=== PATIENT | female | born 1950 | race Caucasian/White ===

== ENCOUNTER 2022-12-27 15:48 | Inpatient (IN) | payer OTHER ==
[~2022-12-27] VITALS: Ht 144.8 cm; Wt 64.4 kg
[2022-12-27 15:57] VITALS: BP_SYST 114; PULSE 133; RESP 24; TEMP 98.3; O2SAT 97
[2022-12-27] MEDS ORDERED: NACL 0.9% 1,000 ML IV ONE ×2 (16:15→18:45)
[2022-12-27 17:10] LABS: HEMATOCRIT 38.5 % (36-48); HEMOGLOBIN 12.4 g/dL (12.0-16.0); MEAN CORPUSCULAR HEMOGLOBIN 31 pg (27-31); MEAN CORPUSCULAR HGB CONC 32 % (32-36); MEAN CORPUSCULAR VOLUME 95 fL (79.0-98.0); PLATELET COUNT (AUTO) 109 K/uL (130-430); RED BLOOD CELL COUNT(AUTO) 4.06 MIL/uL (4.2-6.2); RED CELL DISTRIBUTION WIDTH 14.5 % (9.0-15.0); WHITE BLOOD COUNT (AUTO) 2.9 K/uL (4.8-10.8)
[2022-12-27 17:13] LABS: ANION GAP 15 (5-15); CALCIUM 9.3 mg/dL (8.4-11.0); CARBON DIOXIDE 22 mmol/L (23-29); CHLORIDE 110 mmol/L (98-107); CREATININE 1.74 mg/dL (0.55-1.30); GLUCOSE 143 mg/dL (74-106); POTASSIUM 4.3 mmol/L (3.5-5.1); SODIUM SERUM 147 mmol/L (136-145); UREA NITROGEN, BLOOD 72 mg/dL (8-21)
[2022-12-27 17:18] LABS: ALANINE AMINOTRANSFERASE 17 U/L (12-78); ASPARTATE AMINOTRANSFERASE 27 U/L (10-37); LIPASE 2553 U/L (73-393); TOTAL BILIRUBIN 0.7 mg/dL (0.0-1.0); TOTAL PROTEIN, SERUM 6.1 g/dL (6.4-8.3)
[2022-12-27] MEDS ORDERED: MORPHINE 4 MG INJ. 4 MG/ML VIAL IVP ONE ×2 (18:15→20:15)
[2022-12-27 18:35] LABS: BAND % (MANUAL) 22 % (0-6); BASOPHILS % (MANUAL) 0 % (0-2); EOSINOPHILS % (MANUAL) 0 % (0-7); LYMPHOCYTES % (MANUAL) 1 % (20-46); MONOCYTES % (MANUAL) 7 % (0-11); OVALOCYTES FEW; PLATELET ESTIMATE DECREASED (ADEQUATE); POLYCHROMASIA 1+
[2022-12-27 19:39] LABS: CORRECTED WHITE BLOOD COUNT 2.7 K/uL (4.5-11.0)
[2022-12-28] VITALS (7 sets, daily range): BP systolic 127–156; PULSE 85–122; RESP 16–18; TEMP 96.6–98.6; O2SAT 95–98
[2022-12-28] MEDS: D5/0.45 NS 1,000 ML IV SCH ×3 (02:30→22:14)
[2022-12-28] MEDS ORDERED: SIMV-343 PO (02:52)
[2022-12-28] MEDS ORDERED: METF-379 PO (02:52)
[2022-12-28] MEDS ORDERED: ALLO100T PO (02:52)
[2022-12-28] MEDS ORDERED: ALEN10TA25 PO (02:52)
[2022-12-28] MEDS ORDERED: AMLO5TAB4 PO (02:52)
[2022-12-28] MEDS ORDERED: LIDOCAINE VISCOUS 2%, 15 ML UDC MM ONE (11:00)
[2022-12-28] MEDS ORDERED: BENZOCAINE 20% 0.5mL UD SPRAY MM ONE (12:15)
[2022-12-28] MEDS ORDERED: LIDOCAINE VISCOUS 2%, 15 ML UDC MM SCH (15:00)
[2022-12-28] MEDS: BENZOCAINE 20% 0.5mL UD SPRAY MM SCH ×2 (17:51→22:02)
[2022-12-28] MEDS ORDERED: MORPHINE 4 MG INJ. 4 MG/ML VIAL IVP PRN (19:30)
[2022-12-28] MEDS ORDERED: ONDANSETRON HCL 4 MG/2 ML VIAL IVP PRN (19:30)
[2022-12-28] MEDS ORDERED: MORPHINE 2 MG/ML INJ. SYRINGE IVP PRN (19:30)
[2022-12-28] MEDS ORDERED: NALOXONE HCL 0.4 MG/ML AMP (NARCAN) IVP PRN ×3 (19:30)
[2022-12-28] MEDS ORDERED: LORazepam 2 MG/ML VIAL IVP PRN (19:30)
[2022-12-28] MEDS ORDERED: ACETAMINOPHEN 325 MG TABLET PO PRN ×2 (19:30→20:00)
[2022-12-28] MEDS ORDERED: HYDROcodone/ACETAMIN 10-325 MG TAB PO PRN (19:30)
[2022-12-28] MEDS ORDERED: ALEN70TA84 PO (20:16)
[2022-12-28] MEDS: SIMVASTATIN 20 MG TABLET PO SCH (22:02)
[2022-12-28] MEDS: INSULIN REGULAR, HUMAN 100 UNITS/ML, 3 ML VIAL (humuLIN R) SUBCUT PRN (22:11)
[2022-12-29] VITALS (7 sets, daily range): BP systolic 122–139; PULSE 111–125; RESP 15–20; TEMP 96–99.4; O2SAT 96–98
[2022-12-29 05:12] LABS: BASOPHILS % (AUTO) 0.1 % (0.0-2.0); HEMATOCRIT 33.9 % (36-48); HEMOGLOBIN 10.9 g/dL (12.0-16.0); LYMPHOCYTES # (AUTO) 0.1 K/uL (1.0-5.5); LYMPHOCYTES % (AUTO) 2.9 % (20.5-51.5); MEAN CORPUSCULAR HEMOGLOBIN 31 pg (27-31); MEAN CORPUSCULAR HGB CONC 32 % (32-36); MEAN CORPUSCULAR VOLUME 95 fL (79.0-98.0); NEUTROPHILS # (AUTO) 2.4 K/uL (1.8-7.7); PLATELET COUNT (AUTO) 85 K/uL (130-430); RED BLOOD CELL COUNT(AUTO) 3.55 MIL/uL (4.2-6.2); RED CELL DISTRIBUTION WIDTH 14.5 % (9.0-15.0); WHITE BLOOD COUNT (AUTO) 2.5 K/uL (4.8-10.8)
[2022-12-29] MEDS: INSULIN REGULAR, HUMAN 100 UNITS/ML, 3 ML VIAL (humuLIN R) SUBCUT PRN ×2 (06:13→16:32)
[2022-12-29 06:36] LABS: ALANINE AMINOTRANSFERASE 17 U/L (12-78); ALBUMIN 1.6 g/dL (3.4-4.8); ANION GAP 10 (5-15); ASPARTATE AMINOTRANSFERASE 33 U/L (10-37); CALCIUM 8.5 mg/dL (8.4-11.0); CARBON DIOXIDE 22 mmol/L (23-29); CHLORIDE 114 mmol/L (98-107); CREATININE 0.77 mg/dL (0.55-1.30); GLUCOSE 176 mg/dL (74-106); PHOSPHORUS 2.2 mg/dL (2.7-4.5); POTASSIUM 3.3 mmol/L (3.5-5.1); SODIUM SERUM 146 mmol/L (136-145); TOTAL BILIRUBIN 0.6 mg/dL (0.0-1.0); TOTAL PROTEIN, SERUM 5.2 g/dL (6.4-8.3); UREA NITROGEN, BLOOD 33 mg/dL (8-21)
[2022-12-29] MEDS: D5/0.45 NS 1,000 ML IV SCH ×2 (08:34→16:27)
[2022-12-29] MEDS: amLODIPine BESYLATE 5 MG TABLET PO SCH (08:35)
[2022-12-29] MEDS: BENZOCAINE 20% 0.5mL UD SPRAY MM SCH ×3 (08:35→20:58)
[2022-12-29] MEDS: ALLOPURINOL 100 MG TABLET (ZYLOPRIM) PO SCH (08:35)
[2022-12-29] MEDS ORDERED: K PHOS 30 MM in NS 250 ML IV ONE (11:00)
[2022-12-29] MEDS: SIMVASTATIN 20 MG TABLET PO SCH (20:46)
[2022-12-30 00:32] VITALS: BP_SYST 116; PULSE 122; RESP 18; TEMP 96.9; O2SAT 97
[2022-12-30 04:58] LABS: BASOPHILS % (AUTO) 0.2 % (0.0-2.0); EOSINOPHILS % (AUTO) 0.3 % (0.0-4.0); HEMATOCRIT 29.5 % (36-48); HEMOGLOBIN 9.5 g/dL (12.0-16.0); LYMPHOCYTES # (AUTO) 0.1 K/uL (1.0-5.5); LYMPHOCYTES % (AUTO) 3.6 % (20.5-51.5); MEAN CORPUSCULAR HEMOGLOBIN 31 pg (27-31); MEAN CORPUSCULAR HGB CONC 32 % (32-36); MEAN CORPUSCULAR VOLUME 95 fL (79.0-98.0); MONOCYTES # (AUTO) 0.1 K/uL (0.0-1.0); MONOCYTES % (AUTO) 2.7 % (1.7-9.3); NEUTROPHILS # (AUTO) 2.5 K/uL (1.8-7.7); NEUTROPHILS % (AUTO) 93.2 % (40.0-70.0); PLATELET COUNT (AUTO) 69 K/uL (130-430); RED BLOOD CELL COUNT(AUTO) 3.11 MIL/uL (4.2-6.2); RED CELL DISTRIBUTION WIDTH 14.7 % (9.0-15.0); WHITE BLOOD COUNT (AUTO) 2.7 K/uL (4.8-10.8)
[2022-12-30 05:27] LABS: TOTAL IRON BIND. CAPACITY 142 ug/dL (250-450)
[2022-12-30] MEDS: D5/0.45 NS 1,000 ML IV SCH ×2 (05:40→14:23)
[2022-12-30] MEDS: INSULIN REGULAR, HUMAN 100 UNITS/ML, 3 ML VIAL (humuLIN R) SUBCUT PRN ×4 (06:16→20:52)
[2022-12-30 08:20] VITALS: O2SAT 98
[2022-12-30 08:25] VITALS: BP_SYST 120; PULSE 110; RESP 20; TEMP 97.5; O2SAT 98
[2022-12-30] MEDS: ALLOPURINOL 100 MG TABLET (ZYLOPRIM) PO SCH (09:46)
[2022-12-30] MEDS: amLODIPine BESYLATE 5 MG TABLET PO SCH (09:46)
[2022-12-30] MEDS: BENZOCAINE 20% 0.5mL UD SPRAY MM SCH ×3 (09:47→20:54)
[2022-12-30 11:30] VITALS: BP_SYST 117; PULSE 114; RESP 19; TEMP 97.9; O2SAT 97
[2022-12-30 16:48] VITALS: BP_SYST 117; PULSE 111; RESP 19; TEMP 98.5; O2SAT 96
[2022-12-30 20:00] VITALS: BP_SYST 119; PULSE 114; RESP 18; TEMP 96.9; O2SAT 95
[2022-12-30] MEDS: SIMVASTATIN 20 MG TABLET PO SCH (20:54)
[2022-12-31] VITALS (7 sets, daily range): BP systolic 109–117; PULSE 112–117; RESP 16–20; TEMP 97.3–98.8; O2SAT 95–97
[2022-12-31] MEDS: D5/0.45 NS 1,000 ML IV SCH ×3 (00:54→20:56)
[2022-12-31 05:30] LABS: BASOPHILS % (AUTO) 0.1 % (0.0-2.0); EOSINOPHILS % (AUTO) 0.6 % (0.0-4.0); HEMATOCRIT 27.5 % (36-48); LYMPHOCYTES # (AUTO) 0.1 K/uL (1.0-5.5); LYMPHOCYTES % (AUTO) 4.6 % (20.5-51.5); MEAN CORPUSCULAR HEMOGLOBIN 31 pg (27-31); MEAN CORPUSCULAR HGB CONC 33 % (32-36); MEAN CORPUSCULAR VOLUME 94 fL (79.0-98.0); MONOCYTES # (AUTO) 0.1 K/uL (0.0-1.0); MONOCYTES % (AUTO) 2.7 % (1.7-9.3); NEUTROPHILS # (AUTO) 2.3 K/uL (1.8-7.7); PLATELET COUNT (AUTO) 63 K/uL (130-430); RED BLOOD CELL COUNT(AUTO) 2.93 MIL/uL (4.2-6.2); RED CELL DISTRIBUTION WIDTH 14.3 % (9.0-15.0); WHITE BLOOD COUNT (AUTO) 2.5 K/uL (4.8-10.8)
[2022-12-31 05:44] LABS: ALANINE AMINOTRANSFERASE 34 U/L (12-78); ALBUMIN 1.2 g/dL (3.4-4.8); ANION GAP 9 (5-15); ASPARTATE AMINOTRANSFERASE 34 U/L (10-37); CALCIUM 7.5 mg/dL (8.4-11.0); CARBON DIOXIDE 22 mmol/L (23-29); CHLORIDE 112 mmol/L (98-107); CREATININE 0.74 mg/dL (0.55-1.30); GLUCOSE 221 mg/dL (74-106); SODIUM SERUM 143 mmol/L (136-145); TOTAL BILIRUBIN 0.4 mg/dL (0.0-1.0); TOTAL PROTEIN, SERUM 4.3 g/dL (6.4-8.3); UREA NITROGEN, BLOOD 17 mg/dL (8-21)
[2022-12-31] MEDS: INSULIN REGULAR, HUMAN 100 UNITS/ML, 3 ML VIAL (humuLIN R) SUBCUT PRN ×4 (05:54→21:03)
[2022-12-31] MEDS: BENZOCAINE 20% 0.5mL UD SPRAY MM SCH ×3 (09:30→20:52)
[2022-12-31] MEDS: amLODIPine BESYLATE 5 MG TABLET PO SCH (09:31)
[2022-12-31] MEDS: NEPHROVITE, (FOLIC ACID/VITAMIN B COMP W-C 1 TAB) PO SCH (09:32)
[2022-12-31] MEDS: ALLOPURINOL 100 MG TABLET (ZYLOPRIM) PO SCH (09:33)
[2022-12-31] MEDS ORDERED: POTASSIUM CHLORIDE 20 MEQ/PKT PACKET PO ONE (13:30)
[2022-12-31] MEDS: SIMVASTATIN 20 MG TABLET PO SCH (20:53)
[2023-01-01 00:18] VITALS: BP_SYST 120; PULSE 110; RESP 19; TEMP 98.6; O2SAT 96
[2023-01-01 04:28] LABS: BASOPHILS % (AUTO) 0.1 % (0.0-2.0); EOSINOPHILS # (AUTO) 0.1 K/uL (0.0-0.4); EOSINOPHILS % (AUTO) 1.8 % (0.0-4.0); HEMATOCRIT 27.6 % (36-48); LYMPHOCYTES # (AUTO) 0.1 K/uL (1.0-5.5); LYMPHOCYTES % (AUTO) 3.9 % (20.5-51.5); MEAN CORPUSCULAR HEMOGLOBIN 31 pg (27-31); MEAN CORPUSCULAR HGB CONC 33 % (32-36); MEAN CORPUSCULAR VOLUME 94 fL (79.0-98.0); MONOCYTES # (AUTO) 0.1 K/uL (0.0-1.0); MONOCYTES % (AUTO) 2.3 % (1.7-9.3); NEUTROPHILS # (AUTO) 2.8 K/uL (1.8-7.7); NEUTROPHILS % (AUTO) 91.9 % (40.0-70.0); PLATELET COUNT (AUTO) 78 K/uL (130-430); RED BLOOD CELL COUNT(AUTO) 2.94 MIL/uL (4.2-6.2); RED CELL DISTRIBUTION WIDTH 14.6 % (9.0-15.0)
[2023-01-01 04:57] LABS: ALANINE AMINOTRANSFERASE 33 U/L (12-78); ANION GAP 8 (5-15); ASPARTATE AMINOTRANSFERASE 27 U/L (10-37); CALCIUM 7.4 mg/dL (8.4-11.0); CARBON DIOXIDE 24 mmol/L (23-29); CHLORIDE 112 mmol/L (98-107); CREATININE 0.63 mg/dL (0.55-1.30); GLUCOSE 184 mg/dL (74-106); POTASSIUM 3.1 mmol/L (3.5-5.1); SODIUM SERUM 144 mmol/L (136-145); TOTAL BILIRUBIN 0.3 mg/dL (0.0-1.0); UREA NITROGEN, BLOOD 23 mg/dL (8-21)
[2023-01-01 05:01] LABS: INR 1.2 (0.8-1.2); PROTHROMBIN TIME 12.8 SECS (9.5-12.5)
[2023-01-01] MEDS ORDERED: ALENDRONATE SODIUM 35 MG TABLET PO SCH (06:00)
[2023-01-01] MEDS ORDERED: BENZOCAINE 20% 0.5mL UD SPRAY MM ONE (06:19)
[2023-01-01] MEDS ORDERED: SIMETHICONE 40 MG/0.6 ML ML ONE (07:53)
[2023-01-01] MEDS ORDERED: fentaNYL CITRATE/PF 100 MCG/2 ML AMP ONE (07:53)
[2023-01-01] MEDS ORDERED: MIDAZOLAM HCL 5 MG/5 ML VIAL ONE (07:54)
[2023-01-01 08:00] VITALS: BP_SYST 118; PULSE 77; RESP 16; TEMP 96.8; O2SAT 97
[2023-01-01 08:06] LABS: FERRITIN 860 ng/mL (15-150); FOLATE (FOLIC ACID) 11.7 ng/mL (>3.0)
[2023-01-01] MEDS ORDERED: CEFAZOLIN 1 GM IVPB PREMIX 50 ML IV ONE (08:19)
[2023-01-01] MEDS ORDERED: ceFAZolin SODIUM 1 GM in D5W 100 ML IV ONE (08:30)
[2023-01-01] MEDS: NEPHROVITE, (FOLIC ACID/VITAMIN B COMP W-C 1 TAB) PO SCH (09:00)
[2023-01-01] MEDS: ALLOPURINOL 100 MG TABLET (ZYLOPRIM) PO SCH (09:00)
[2023-01-01] MEDS: amLODIPine BESYLATE 5 MG TABLET PO SCH (09:00)
[2023-01-01] MEDS ORDERED: MAGNESIUM SULFATE 50 ML IV ONE (10:00)
[2023-01-01 11:31] VITALS: BP_SYST 105; PULSE 106; RESP 19; TEMP 98.4; O2SAT 96
[2023-01-01] MEDS ORDERED: K PHOS 30 MM in NS 250 ML IV ONE (12:00)
[2023-01-01] MEDS: D5/0.45 NS 1,000 ML IV SCH (14:33)
[2023-01-01 17:01] VITALS: BP_SYST 104; PULSE 107; RESP 18; TEMP 98.4; O2SAT 97
[2023-01-01] MEDS: INSULIN REGULAR, HUMAN 100 UNITS/ML, 3 ML VIAL (humuLIN R) SUBCUT PRN (18:05)
[2023-01-01 20:00] VITALS: BP_SYST 110; PULSE 98; RESP 16; TEMP 98.1; O2SAT 98
[2023-01-01] MEDS: BENZOCAINE 20% 0.5mL UD SPRAY MM SCH (21:00)
[2023-01-01] MEDS: PANTOPRAZOLE SODIUM 40 MG TAB PO SCH (22:29)
[2023-01-01] MEDS: SIMVASTATIN 20 MG TABLET PO SCH (22:29)
[2023-01-01] MEDS: metFORMIN HCL 500 MG TABLET PO SCH (22:29)
[2023-01-02] VITALS (9 sets, daily range): BP systolic 103–120; PULSE 93–111; RESP 15–18; TEMP 97.1–98; O2SAT 94–100
[2023-01-02 05:25] LABS: BASOPHILS % (AUTO) 0.1 % (0.0-2.0); EOSINOPHILS % (AUTO) 0.8 % (0.0-4.0); HEMATOCRIT 25.1 % (36-48); HEMOGLOBIN 8.2 g/dL (12.0-16.0); LYMPHOCYTES # (AUTO) 0.2 K/uL (1.0-5.5); LYMPHOCYTES % (AUTO) 5.7 % (20.5-51.5); MEAN CORPUSCULAR HEMOGLOBIN 31 pg (27-31); MEAN CORPUSCULAR HGB CONC 33 % (32-36); MEAN CORPUSCULAR VOLUME 95 fL (79.0-98.0); MONOCYTES # (AUTO) 0.1 K/uL (0.0-1.0); MONOCYTES % (AUTO) 3.7 % (1.7-9.3); NEUTROPHILS # (AUTO) 2.5 K/uL (1.8-7.7); NEUTROPHILS % (AUTO) 89.7 % (40.0-70.0); PLATELET COUNT (AUTO) 74 K/uL (130-430); RED BLOOD CELL COUNT(AUTO) 2.65 MIL/uL (4.2-6.2); RED CELL DISTRIBUTION WIDTH 14.6 % (9.0-15.0); WHITE BLOOD COUNT (AUTO) 2.8 K/uL (4.8-10.8)
[2023-01-02 05:53] LABS: ANION GAP 8 (5-15); CALCIUM 7.4 mg/dL (8.4-11.0); CARBON DIOXIDE 24 mmol/L (23-29); CHLORIDE 111 mmol/L (98-107); GLUCOSE 123 mg/dL (74-106); POTASSIUM 3.8 mmol/L (3.5-5.1); SODIUM SERUM 143 mmol/L (136-145); UREA NITROGEN, BLOOD 20 mg/dL (8-21)
[2023-01-02] MEDS: D5/0.45 NS 1,000 ML IV SCH (07:13)
[2023-01-02] MEDS: metFORMIN HCL 500 MG TABLET PO SCH ×2 (08:49→17:52)
[2023-01-02] MEDS: ALLOPURINOL 100 MG TABLET (ZYLOPRIM) PO SCH (08:49)
[2023-01-02] MEDS: PANTOPRAZOLE SODIUM 40 MG TAB PO SCH ×2 (08:49→21:14)
[2023-01-02] MEDS: NEPHROVITE, (FOLIC ACID/VITAMIN B COMP W-C 1 TAB) PO SCH (08:49)
[2023-01-02] MEDS: amLODIPine BESYLATE 5 MG TABLET PO SCH (08:51)
[2023-01-02] MEDS: BENZOCAINE 20% 0.5mL UD SPRAY MM SCH ×4 (08:51→21:14)
[2023-01-02] MEDS ORDERED: [UNRECOGNIZED DRUG - CODE] MM (10:04)
[2023-01-02] MEDS ORDERED: ALEN70TA84 GT (10:04)
[2023-01-02] MEDS ORDERED: AMLO5TAB4 GT (10:04)
[2023-01-02] MEDS ORDERED: SIMV-343 GT (10:04)
[2023-01-02] MEDS ORDERED: METF-379 GT (10:04)
[2023-01-02] MEDS ORDERED: ALLO100T GT (10:04)
[2023-01-02] MEDS ORDERED: NEPH GT (10:05)
[2023-01-02] MEDS ORDERED: PRO40 GT (10:05)
[2023-01-02] MEDS: INSULIN REGULAR, HUMAN 100 UNITS/ML, 3 ML VIAL (humuLIN R) SUBCUT PRN ×2 (11:18→17:54)
[2023-01-02] MEDS: SIMVASTATIN 20 MG TABLET PO SCH (21:14)
[2023-01-02] MEDS: HYDROcodone/ACETAMIN 5-325 MG TAB (NORCO/ VICODIN) PO PRN (21:14)
[2023-01-03 01:50] VITALS: BP_SYST 109; PULSE 114; RESP 17; TEMP 98.5; O2SAT 98
[2023-01-03 05:27] LABS: BASOPHILS % (AUTO) 0.1 % (0.0-2.0); EOSINOPHILS % (AUTO) 0.6 % (0.0-4.0); HEMOGLOBIN 9.5 g/dL (12.0-16.0); LYMPHOCYTES # (AUTO) 0.1 K/uL (1.0-5.5); LYMPHOCYTES % (AUTO) 4.1 % (20.5-51.5); MEAN CORPUSCULAR HEMOGLOBIN 31 pg (27-31); MEAN CORPUSCULAR HGB CONC 33 % (32-36); MEAN CORPUSCULAR VOLUME 94 fL (79.0-98.0); MONOCYTES # (AUTO) 0.1 K/uL (0.0-1.0); MONOCYTES % (AUTO) 1.8 % (1.7-9.3); NEUTROPHILS # (AUTO) 2.6 K/uL (1.8-7.7); NEUTROPHILS % (AUTO) 93.4 % (40.0-70.0); PLATELET COUNT (AUTO) 95 K/uL (130-430); RED BLOOD CELL COUNT(AUTO) 3.09 MIL/uL (4.2-6.2); RED CELL DISTRIBUTION WIDTH 14.4 % (9.0-15.0); WHITE BLOOD COUNT (AUTO) 2.8 K/uL (4.8-10.8)
[2023-01-03 05:47] LABS: ANION GAP 10 (5-15); CALCIUM 7.6 mg/dL (8.4-11.0); CARBON DIOXIDE 24 mmol/L (23-29); CHLORIDE 110 mmol/L (98-107); CREATININE 0.78 mg/dL (0.55-1.30); GLUCOSE 141 mg/dL (74-106); POTASSIUM 3.5 mmol/L (3.5-5.1); SODIUM SERUM 144 mmol/L (136-145); UREA NITROGEN, BLOOD 26 mg/dL (8-21)
[2023-01-03] MEDS: INSULIN REGULAR, HUMAN 100 UNITS/ML, 3 ML VIAL (humuLIN R) SUBCUT PRN ×2 (06:16→20:56)
[2023-01-03 08:30] VITALS: BP_SYST 112; PULSE 115; RESP 16; TEMP 97.1; O2SAT 95
[2023-01-03] MEDS: PANTOPRAZOLE SODIUM 40 MG TAB PO SCH ×2 (08:33→20:44)
[2023-01-03] MEDS: metFORMIN HCL 500 MG TABLET PO SCH ×2 (08:33→17:53)
[2023-01-03] MEDS: NEPHROVITE, (FOLIC ACID/VITAMIN B COMP W-C 1 TAB) PO SCH (08:33)
[2023-01-03] MEDS: amLODIPine BESYLATE 5 MG TABLET PO SCH (08:34)
[2023-01-03] MEDS: ALLOPURINOL 100 MG TABLET (ZYLOPRIM) PO SCH (08:34)
[2023-01-03] MEDS: BENZOCAINE 20% 0.5mL UD SPRAY MM SCH ×3 (08:41→20:44)
[2023-01-03 09:08] VITALS: O2SAT 95
[2023-01-03 11:33] VITALS: BP_SYST 118; PULSE 112; RESP 19; TEMP 98; O2SAT 96
[2023-01-03 16:23] VITALS: BP_SYST 127; PULSE 117; RESP 18; TEMP 98.2; O2SAT 98
[2023-01-03 19:42] VITALS: BP_SYST 117; PULSE 114; RESP 18; TEMP 97; O2SAT 96
[2023-01-03] MEDS: SIMVASTATIN 20 MG TABLET PO SCH (20:44)
[2023-01-04 02:05] VITALS: BP_SYST 110; PULSE 112; RESP 17; TEMP 97.6; O2SAT 97
[2023-01-04 05:55] LABS: BASOPHILS % (AUTO) 0.1 % (0.0-2.0); EOSINOPHILS % (AUTO) 0.5 % (0.0-4.0); HEMATOCRIT 26.8 % (36-48); HEMOGLOBIN 8.6 g/dL (12.0-16.0); LYMPHOCYTES # (AUTO) 0.1 K/uL (1.0-5.5); LYMPHOCYTES % (AUTO) 3.7 % (20.5-51.5); MEAN CORPUSCULAR HEMOGLOBIN 30 pg (27-31); MEAN CORPUSCULAR HGB CONC 32 % (32-36); MEAN CORPUSCULAR VOLUME 94 fL (79.0-98.0); MONOCYTES # (AUTO) 0.1 K/uL (0.0-1.0); MONOCYTES % (AUTO) 3.4 % (1.7-9.3); NEUTROPHILS # (AUTO) 3.2 K/uL (1.8-7.7); NEUTROPHILS % (AUTO) 92.3 % (40.0-70.0); PLATELET COUNT (AUTO) 114 K/uL (130-430); RED BLOOD CELL COUNT(AUTO) 2.84 MIL/uL (4.2-6.2); WHITE BLOOD COUNT (AUTO) 3.4 K/uL (4.8-10.8)
[2023-01-04] MEDS: INSULIN REGULAR, HUMAN 100 UNITS/ML, 3 ML VIAL (humuLIN R) SUBCUT PRN ×2 (05:58→22:34)
[2023-01-04 06:16] LABS: ANION GAP 10 (5-15); CALCIUM 7.5 mg/dL (8.4-11.0); CARBON DIOXIDE 25 mmol/L (23-29); CHLORIDE 113 mmol/L (98-107); CREATININE 0.68 mg/dL (0.55-1.30); GLUCOSE 171 mg/dL (74-106); POTASSIUM 3.6 mmol/L (3.5-5.1); SODIUM SERUM 148 mmol/L (136-145); UREA NITROGEN, BLOOD 30 mg/dL (8-21)
[2023-01-04] MEDS: ALLOPURINOL 100 MG TABLET (ZYLOPRIM) PO SCH (08:26)
[2023-01-04] MEDS: metFORMIN HCL 500 MG TABLET PO SCH ×2 (08:26→18:00)
[2023-01-04] MEDS: PANTOPRAZOLE SODIUM 40 MG TAB PO SCH ×2 (08:26→22:24)
[2023-01-04] MEDS: NEPHROVITE, (FOLIC ACID/VITAMIN B COMP W-C 1 TAB) PO SCH (08:26)
[2023-01-04] MEDS: amLODIPine BESYLATE 5 MG TABLET PO SCH (08:26)
[2023-01-04] MEDS: BENZOCAINE 20% 0.5mL UD SPRAY MM SCH ×3 (08:27→22:25)
[2023-01-04 08:30] VITALS: BP_SYST 119; PULSE 103; RESP 17; TEMP 96.3; O2SAT 98
[2023-01-04 10:02] VITALS: O2SAT 98
[2023-01-04 12:30] VITALS: BP_SYST 112; PULSE 100; RESP 17; TEMP 98.3; O2SAT 97
[2023-01-04 18:54] VITALS: BP_SYST 124; PULSE 112; RESP 16; TEMP 96.9; O2SAT 98
[2023-01-04 20:00] VITALS: BP_SYST 144; PULSE 115; RESP 16; TEMP 97.8; O2SAT 94; O2SAT 97
[2023-01-04] MEDS: SIMVASTATIN 20 MG TABLET PO SCH (22:25)
[2023-01-05 01:19] VITALS: BP_SYST 116; PULSE 116; RESP 22; TEMP 96.9; O2SAT 97
[2023-01-05 05:23] LABS: BASOPHILS % (AUTO) 0.2 % (0.0-2.0); EOSINOPHILS % (AUTO) 0.8 % (0.0-4.0); HEMATOCRIT 28.4 % (36-48); LYMPHOCYTES # (AUTO) 0.2 K/uL (1.0-5.5); LYMPHOCYTES % (AUTO) 5.5 % (20.5-51.5); MEAN CORPUSCULAR HEMOGLOBIN 30 pg (27-31); MEAN CORPUSCULAR HGB CONC 32 % (32-36); MEAN CORPUSCULAR VOLUME 95 fL (79.0-98.0); MONOCYTES # (AUTO) 0.1 K/uL (0.0-1.0); NEUTROPHILS # (AUTO) 2.9 K/uL (1.8-7.7); NEUTROPHILS % (AUTO) 90.5 % (40.0-70.0); PLATELET COUNT (AUTO) 137 K/uL (130-430); RED BLOOD CELL COUNT(AUTO) 2.99 MIL/uL (4.2-6.2); RED CELL DISTRIBUTION WIDTH 14.7 % (9.0-15.0); WHITE BLOOD COUNT (AUTO) 3.2 K/uL (4.8-10.8)
[2023-01-05 05:42] LABS: ALANINE AMINOTRANSFERASE 25 U/L (12-78); ALBUMIN 1.2 g/dL (3.4-4.8); ANION GAP 7 (5-15); ASPARTATE AMINOTRANSFERASE 24 U/L (10-37); CALCIUM 7.6 mg/dL (8.4-11.0); CARBON DIOXIDE 29 mmol/L (23-29); CHLORIDE 112 mmol/L (98-107); GLUCOSE 164 mg/dL (74-106); POTASSIUM 3.6 mmol/L (3.5-5.1); SODIUM SERUM 148 mmol/L (136-145); TOTAL BILIRUBIN 0.2 mg/dL (0.0-1.0); TOTAL PROTEIN, SERUM 5.1 g/dL (6.4-8.3); UREA NITROGEN, BLOOD 26 mg/dL (8-21)
[2023-01-05] MEDS: INSULIN REGULAR, HUMAN 100 UNITS/ML, 3 ML VIAL (humuLIN R) SUBCUT PRN (06:23)
[2023-01-05 07:00] VITALS: O2SAT 96
[2023-01-05 08:19] VITALS: BP_SYST 116; PULSE 108; RESP 18; TEMP 96.7; O2SAT 100
[2023-01-05] MEDS: metFORMIN HCL 500 MG TABLET PO SCH ×2 (08:42→09:15)
[2023-01-05] MEDS: NEPHROVITE, (FOLIC ACID/VITAMIN B COMP W-C 1 TAB) PO SCH (08:42)
[2023-01-05] MEDS: HYDROcodone/ACETAMIN 5-325 MG TAB (NORCO/ VICODIN) PO PRN (08:43)
[2023-01-05] MEDS: amLODIPine BESYLATE 5 MG TABLET PO SCH (08:44)
[2023-01-05] MEDS: PANTOPRAZOLE SODIUM 40 MG TAB PO SCH (08:51)
[2023-01-05] MEDS: ALLOPURINOL 100 MG TABLET (ZYLOPRIM) PO SCH (08:52)
[2023-01-05] MEDS: BENZOCAINE 20% 0.5mL UD SPRAY MM SCH ×2 (09:12→15:49)
[2023-01-05 11:27] VITALS: BP_SYST 110; PULSE 77; RESP 17; TEMP 98; O2SAT 98
[2023-01-05 16:55] VITALS: BP_SYST 118; PULSE 113; RESP 20; TEMP 97.6; O2SAT 100
[2023-01-05 17:55] VITALS: BP_SYST 109; PULSE 110; RESP 17; TEMP 98.2; O2SAT 98
== END 2023-01-05 17:48 | DRG 157 ==
LOC: SED 15:48 → STU 12-28 00:26 → SMU 12-31 16:49 → STU 01-03 07:04
PROVIDERS: ADMIT Preventive Medicine Preventive Medicine/Occupational Environmental Medicine; ATTEND Preventive Medicine Preventive Medicine/Occupational Environmental Medicine
PROC: 0DB68ZX Excision of Stomach, Via Natural or Artificial Opening Endoscopic, Diagnostic (ICD-10-PCS; 2023-01-01)
PROC: 0DH63UZ Insertion of Feeding Device into Stomach, Percutaneous Approach (ICD-10-PCS; principal; 2023-01-01 08:00)
PROC: 0DB98ZX Excision of Duodenum, Via Natural or Artificial Opening Endoscopic, Diagnostic (ICD-10-PCS; 2023-01-01 08:00)
DX: K12.30 Oral mucositis (ulcerative), unspecified (principal); E43 Unspecified severe protein-calorie malnutrition; D61.818 Other pancytopenia; E87.20 Acidosis, unspecified; C20 Malignant neoplasm of rectum; E87.0 Hyperosmolality and hypernatremia; K22.10 Ulcer of esophagus without bleeding; N17.9 Acute kidney failure, unspecified; E86.0 Dehydration; E11.65 Type 2 diabetes mellitus with hyperglycemia; E83.39 Other disorders of phosphorus metabolism; E83.51 Hypocalcemia; E87.5 Hyperkalemia; E87.6 Hypokalemia; E88.09 Other disorders of plasma-protein metabolism, not elsewhere classified; D64.9 Anemia, unspecified; R13.10 Dysphagia, unspecified; T45.1X5D Adverse effect of antineoplastic and immunosuppressive drugs, subsequent encounter; Z68.30 Body mass index [BMI] 30.0-30.9, adult; I11.9 Hypertensive heart disease without heart failure; E78.5 Hyperlipidemia, unspecified; K29.70 Gastritis, unspecified, without bleeding; K29.80 Duodenitis without bleeding; Z85.048 Personal history of other malignant neoplasm of rectum, rectosigmoid junction, and anus; Z90.49 Acquired absence of other specified parts of digestive tract; Z93.2 Ileostomy status; Z93.3 Colostomy status
CPT/HCPCS: 36415; 43239; 43246; 71045; 74018; 76376; 80048; 80053; 82607; 82728; 82746; 82962; 83540; 83550; 83605; 83690; 83735; 84100; 85007; 85025; 85027; 85044; 85610-TC; 85730-TC; 87040; 87081; 88305; 88312; 88313; 93005; 93306; 96361; 96374; 97110-GP; 97112-GP; 97116-GP; 97163-GP; 97530-GP; 99285; A4409; G0378; J0690; J1815; J2060; J2250; J2270; J2405; J3010; J7050; J7060